=== PATIENT | female | born 1955 | race Caucasian/White ===

== ENCOUNTER 2021-10-21 10:13 | Observation (INO) ==
--- NOTE | 2021-10-16 12:03 | Anesthesiology Consultation ---
Date of Service October 16, 2021 Assessment & Plan (1) Encounter for pre-operative examination: Chart Review Chart Review: Acceptable Risk for Surgery (pending preop Covid testing results and DOS labs ) and Patient NOT seen in Pre Admission Testing - No updated preop testing done- will order CBC with diff, PRP, coags for DOS Per nursing assessment- patient anxious about SAB Last dose of Xarelto will be on the evening of 10/17/21 (was approved by heme per patient) Per nursing assessment on 10/16/21, patient denies any recent travel with exception to [place]. No known Covid positive exposures or Covid related sy mptoms. No known Covid infection in the past 90 days. Pt is fully vaccinated for Covid. Preop Covid testing scheduled 10/17/21= will await results. Patient seen by PCP 03/28/2021= patient seen for preop exam. Scheduled for right knee replacement 04/05/2021. No concerns at this time. Labs noted, stable. EKG normal. CXR clear of any acute pulmonary process.Patient is cleared from a medical standpoint. CT thoracic spine with minimal chronic T2 vertebral compression fracture; will not impact upcoming procedure. Patient is cleared for surgery. History Surgery Operation Date: 10/21/21 07:00 Proposed Procedures p Right Total Knee Arthroplasty - Yash Torres DO Height/Weight Height: 5 ft 1.75 in Weight: 88.451 kg Allergies Allergy/AdvReac Type Severity Reaction Status Date / Time mold Allergy Unknown ALLERGY Verified 10/16/21 09:42 CONGESTION sulfamethoxazole Allergy Unknown CONSTIPATIO Verified 10/16/21 09:42 [From Bactrim] N trimethoprim [From Bactrim] Allergy Unknown CONSTIPATIO Verified 10/16/21 09:42 N nitrofurantoin AdvReac Unknown GAVE COLD Verified 10/16/21 09:42 [From Macrobid] AND CHILLS Medications Home Medications Medication Instructions Recorded Confirmed Last Taken alprazolam 0.5 mg tablet (Xanax) 0.5 mg PO HS 01/08/21 10/16/21 Unknown celecoxib 200 mg capsule (Celebrex) 200 mg PO QAM 01/08/21 10/16/21 Unknown fluticasone propionate 50 1 spray INTRANASAL DAILY PRN 01/08/21 10/16/21 Unknown mcg/actuation nasal spray,suspension (Flonase Allergy Relief) losartan 50 mg tablet 50 mg PO QAM 01/08/21 10/16/21 Unknown pantoprazole 40 mg tablet,delayed 40 mg PO QAM 01/08/21 10/16/21 Unknown release (Protonix) rivaroxaban 20 mg tablet (Xarelto) 20 mg PO HS 01/08/21 10/16/21 Unknown rosuvastatin 5 mg tablet (Crestor) 5 mg PO Q2D 01/08/21 10/16/21 Unknown topiramate 100 mg tablet (Topamax) 100 mg PO BID tab 01/08/21 10/16/21 Unknown trazodone 100 mg tablet 100 mg PO HS 01/08/21 10/16/21 Unknown venlafaxine 150 mg 150 mg PO QAM 01/08/21 10/16/21 Unknown capsule,extended release 24 hr (Effexor XR) venlafaxine 37.5 mg tablet 37.5 mg PO QAM 01/08/21 10/16/21 Unknown cholecalciferol (vitamin D3) 125 125 mcg PO Q2D 03/04/21 10/16/21 Unknown mcg (5,000 unit) tablet (Vitamin D3) docusate sodium 100 mg capsule 100 mg PO HS 10/16/21 10/16/21 Unknown (Colace) polyethylene glycol 3350 17 gram 17 g PO UD PRN 10/16/21 10/16/21 Unknown oral powder packet (Miralax) Past Medical History Medical History Anxiety Compression fracture 03/2021 incidental finding on CXR- pt asymptomatic. No limitations. Constipation S/p colonoscopy, no findings History of anesthesia reaction Pt reports fear of getting spinal anesthesia... 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 10 YRS AGO NO STENTS History of cataract surgery R/L History of colonoscopy 2 weeks ago History of esophagogastroduodenoscopy (EGD) History of hysterectomy OVARIES REMAIN History of lithotripsy History of lumpectomy of both breasts BENIGN Thyroid nodule HX S/P PARTIAL THYROIDECTOMY Social History Smoking Status: Never smoker Do You Dip or Chew Tobacco: No Hx Alcohol Use: Yes (ONLY 1-2 DRINKS PER YEAR) Hx Substance Use: No substance use type: does not use Testing Electrocardiogram Date: 03/14/21 Findings: + NSR @ (76bpm ) Normal EKG per cardio Chest X-Ray Date: 03/14/21 Findings: + NAD Possible compression fracture deformity within lower thoracic spine, acuity is unknown. Further evaluation with CT of the thoracic spine is recommended. Report will be sent to ordering physician office. (Per 03/14/21 anesthesia consultation- per 03/28/[address] thoracic spine done that showed minimal chronic T2 vertebral compression fracture- felt it would not impact upcoming surgery (pt initially scheduled for surgery 04/05/21 (rescheduled to 10/21/21)) Stress Test Date: 05/02/20 Type: DSE Resting EF: 60% Resting LV Function: normal Dobutamine stress EKG is not indicative of ischemia. Dobutamine stress echocardiogram was negative for ischemia/infarction.
--- NOTE | 2021-10-17 09:08 | History & Physical Report ---
Date of Service October 17, 2021 Assessment & Plan (1) Osteoarthritis of right knee: We will proceed with a right total knee arthroplasty. Postoperatively she will be started on Xarelto for DVT prophylaxis and kept overnight in the hospital for postoperative medical management. She plans to use home health upon discharge. History of Present Illness Chief Complaint: Osteoarthritis of the right knee. Primary Care Provider: Dc Coates is a pleasant 66-year-old female who comes in with chronic worsening right knee pain. Is been going on for several years. She cannot going up and down stairs anymore. X-rays and clinical examination have been diagnostic for advanced osteoarthritis of the right knee. MRI confirms the arthritis. After failing conservative treatment, she has elected proceed with a right total knee arthroplasty. Allergies Allergy/AdvReac Type Severity Reaction Status Date / Time mold Allergy Unknown ALLERGY Verified 10/16/21 09:42 CONGESTION sulfamethoxazole Allergy Unknown CONSTIPATIO Verified 10/16/21 09:42 [From Bactrim] N trimethoprim [From Bactrim] Allergy Unknown CONSTIPATIO Verified 10/16/21 09:42 N nitrofurantoin AdvReac Unknown GAVE COLD Verified 10/16/21 09:42 [From Macrobid] AND CHILLS Home Medications Medication Instructions Recorded Confirmed Type alprazolam 0.5 mg tablet (Xanax) 0.5 mg PO HS 01/08/21 10/16/21 History celecoxib 200 mg capsule (Celebrex) 200 mg PO QAM 01/08/21 10/16/21 History fluticasone propionate 50 1 spray INTRANASAL DAILY PRN 01/08/21 10/16/21 History mcg/actuation nasal spray,suspension (Flonase Allergy Relief) losartan 50 mg tablet 50 mg PO QAM 01/08/21 10/16/21 History pantoprazole 40 mg tablet,delayed 40 mg PO QAM 01/08/21 10/16/21 History release (Protonix) rivaroxaban 20 mg tablet (Xarelto) 20 mg PO HS 01/08/21 10/16/21 History rosuvastatin 5 mg tablet (Crestor) 5 mg PO Q2D 01/08/21 10/16/21 History topiramate 100 mg tablet (Topamax) 100 mg PO BID tab 01/08/21 10/16/21 History trazodone 100 mg tablet 100 mg PO HS 01/08/21 10/16/21 History venlafaxine 150 mg 150 mg PO QAM 01/08/21 10/16/21 History capsule,extended release 24 hr (Effexor XR) venlafaxine 37.5 mg tablet 37.5 mg PO QAM 01/08/21 10/16/21 History cholecalciferol (vitamin D3) 125 125 mcg PO Q2D 03/04/21 10/16/21 History mcg (5,000 unit) tablet (Vitamin D3) docusate sodium 100 mg capsule 100 mg PO HS 10/16/21 10/16/21 History (Colace) polyethylene glycol 3350 17 gram 17 g PO UD PRN 10/16/21 10/16/21 History oral powder packet (Miralax) Past Med/Surg History Medical History Anxiety Compression fracture 03/2021 incidental finding on CXR- pt asymptomatic. No limitations. Constipation S/p colonoscopy, no findings History of anesthesia reaction Pt reports fear of getting spinal anesthesia... 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 Protein S deficiency Hx of phlebitis but no history of DVT/PE ON XARELTO SOB (shortness of breath) on exertion "OUT OF SHAPE"-DOES NOT EXERCISE Surgical History History of cardiac cath [facility] 10 YRS AGO NO STENTS History of cataract surgery R/L History of colonoscopy 2 weeks ago History of esophagogastroduodenoscopy (EGD) History of hysterectomy OVARIES REMAIN History of lithotripsy History of lumpectomy of both breasts BENIGN Thyroid nodule HX S/P PARTIAL THYROIDECTOMY Family History Father Family history of diabetes mellitus Family hx of colon cancer Mother Family history of diabetes mellitus Social History Smoking Status: Never smoker Second Hand Exposure: Yes (FATHER SMOKED); Hx Alcohol Use: Yes (ONLY 1-2 DRINKS PER YEAR) Hx Substance Use: No Preferred Language: Indonesian Communication Ability: Effective [employer] Dispatcher Required: No Beliefs That Will Affect Care: None Current Living Situation: Alone current occupational status: employed current occupation: [employer] Feels Safe at Home: Yes Assistive Devices: Denture - Upper Review of Systems All systems reviewed & are unremarkable except as noted in HPI & below. Physical Exam On physical examination of the right knee, she has a trace effusion. She is good motion 0 to 120 degrees. No instability. Tenderness palpation of the distal medial femoral condyle and over the medial joint line. Constitutional WD/WN, vitals as above Eyes PERRL, conjunctivae normal, anicteric sclerae ENMT external ear and nose normal, oropharynx normal Neck trachea midline, no thyromegaly Respiratory normal respiratory effort Cardiovascular RRR, no murmur, no edema Gastrointestinal (Abdomen) normal bowel sounds, soft, nontender, no hepatosplenomegaly Psychiatric A+Ox3, euthymic affect Results & Data Results & Data Laboratory Results . Diagnostic Findings X-rays of the right knee do show some signs of osteoarthritis with some joint space narrowing. MRI of the right knee shows more advanced arthritis with some joint space narrowing osteophyte formation of fluid within the bone. PG Care Time/CCT Total # of Minutes Spent Total Time Spent with Patient: Total time spent is greater than 50% in coordination of care (as documented) at patient's floor/unit and/or counseling patient: Coding Level of Care Code None Diagnoses Osteoarthritis of right knee M17.11
[~2021-10-21 10:13] MED LIST: ACETAMINOPHEN 500 MG TAB PO SCH; BUPIVACAINE 0.5 % 5 MG/1 ML PF 10ML VIAL ONE; FAMOTIDINE 20 MG TAB PO SCH; GABAPENTIN 300 MG CAP PO SCH; Ketorolac (*for OR use only*) 30 MG, dexAMETHasone 4 MG, KETAMINE HCL (**OR use only) 1... INFIL SCH; LR 500ML BOLUS, THEN 15ML/HR IV SCH; ROPIVACAINE 0.5% 5 MG/ML 30 ML VIAL ONE; TRANEXAMIC ACID 1,000 MG **IV Intra-op IV SCH; ceFAZolin 2000MG 2,000 MG/15 ML SYR IV SCH
[2021-10-21 11:01] LABS: Basophils # (auto) 0.07 K/uL (0-0.2); Basophils % (auto) 1.1 %; Eosinophils # (auto) 0.07 K/uL (0-0.5); Eosinophils % (auto) 1.1 %; Hematocrit (blood only) 44.8 % (37-47); Hemoglobin 14.7 g/dL (12.0-16.0); Immature Granulocytes # (auto) 0.01 K/uL (0.00-0.02); Immature Granulocytes % (auto) 0.2 %; Lymphocytes # (auto) 2.12 K/uL (1.2-3.4); Lymphocytes % (auto) 32.5 %; Mean Corpuscular Hemoglobin 28.7 pg (25-34); Mean Corpuscular Volume 87.5 fL (80-100); Mean Platelet Volume 10.3 fL (7.4-10.4); Monocytes # (auto) 0.42 K/uL (0.11-0.59); Monocytes % (auto) 6.4 %; Neutrophils # (auto) 3.83 K/uL (1.4-6.5); Neutrophils % (auto) 58.7 %; Platelet Count 269 K/uL (130-400); RDW Coefficient of Variation 13.5 % (11.5-14.5); RDW Standard Deviation 43.5 fL (36.4-46.3); Red Blood Count 5.12 M/uL (4.2-5.4); White Blood Count 6.52 K/uL (4.8-10.8)
[2021-10-21 11:11] LABS: Mean Corpuscular Hgb Conc 32.8 g/dL (32-36)
[2021-10-21 11:16] LABS: BUN Creatinine Ratio 13.2 (10-20); Calcium 9.1 mg/dl (8.5-10.1); Est GFR (African American) 76.2 ml/min; Est GFR (Non-African American) 65.7 ml/min; Potassium 3.9 mmol/L (3.5-5.1)
[2021-10-21] MEDS ORDERED: fentaNYL citrate 100 MCG/2 ML VIAL ONE (11:31)
[2021-10-21] MEDS ORDERED: MIDAZOLAM HCL 1 MG/ML 2ML VIAL ONE ×2 (11:31→12:28)
[2021-10-21] MEDS ORDERED: PROPOFOL IV EMULSION 10 MG/ML 20 ML VIAL IV ONE ×2 (11:32)
[2021-10-21 12:18] LABS: Partial Thromboplastin Ratio 0.8; Partial Thromboplastin Time 23.2 Seconds (21.0-31.0); Prothrombin Time 10.2 Seconds (9.0-12.0)
[2021-10-21] MEDS ORDERED: ORTHO JOINT ANESTHETIC ONE (12:27)
[2021-10-21] MEDS ORDERED: HYDROmorphone INJ 1 MG/ML SYRINGE IV PRN (12:29)
[2021-10-21] MEDS ORDERED: ePHEDrine sulfate 50 MG/ML AMP IV PRN (12:29)
[2021-10-21] MEDS ORDERED: KETOROLAC 30 MG/ML VIAL IV PRN (12:29)
[2021-10-21] MEDS ORDERED: ONDANSETRON INJ 2 MG/ML 2 ML VIAL IV PRN (12:29)
[2021-10-21] MEDS ORDERED: ATROPINE SULFATE 0.1 MG/ML 10ML SYR IV PRN (12:29)
--- NOTE | 2021-10-21 12:50 | History & Physical Bridge Note ---
Date of Service October 21, 2021 History & Physical Bridge Note I have examined the patient, reviewed the History & Physical and in the interval since the performance of the History & Physical I have noted the following changes of clinical significance: no changes noted
[2021-10-21] MEDS ORDERED: TRANEXAMIC ACID 100 MG/ML 10 ML VIAL IV ONE ×2 (13:15)
[2021-10-21] MEDS ORDERED: TRANEXAMIC ACID 1,000 MG **IV Intra-op IV ONE (13:30)
[2021-10-21] MEDS ORDERED: ONDANSETRON INJ 2 MG/ML 2 ML VIAL ONE (14:10)
--- NOTE | 2021-10-21 14:23 | Operative Report ---
PG Post Operative Report Pre & Post Diagnosis Operation Date: 10/21/21 12:25 Pre-Op Diagnosis: Osteoarthritis of right knee Post-Op Diagnosis: Osteoarthritis of right knee I identified the patient and participated in the time-out.: Yes Procedure Operation Date: 10/21/21 12:25 Actual Procedures p Right Total Knee Arthroplasty(Right) - Yash Torres DO Surgeon Yash Torres, Manager Work [employer] PAC Estimated Blood Loss 10 Findings Consistent with Post-Op Diagnosis Specimens Right femoral and tibial bone Complications none Disposition Disposition: Recovery Room Indications Aminata is a pleasant six 6-year-old female has been dealing with chronic in creasing right knee pain. X-rays and clinical examination have been diagnostic for advanced arthritis of the right knee. After failing conservative treatment, she elected to proceed with a right total knee arthroplasty. Description of Procedure Implants used: I used a [employer] Person[employer] total knee arthroplasty system with a size 6 standard femur, D tibia, 28 oval patella, and a size 13 medial congruent polyethylene bearing. All components were cemented in place with Biomet cement. Aminata arrived [facility] for the above procedure. She was seen in the preoperative holding area and the operative extremity was identified and signed. She was given a preoperative antibiotic, TXA, a spinal anesthetic and an adductor nerve block. She was taken back to the operating room and laid on the table in supine position. She was given basic sedation. The operative knee was then prepped and draped in sterile fashion. A timeout was done, and the patient and the operative extremity was properly identified. A midline incision was made directly over the patella. Dissection was taken down to the extensor mechanism. A subvastus arthrotomy was used. The medial retinaculum was released and the fat pad was mostly excised. The knee was flexed and the ACL, PCL, and meniscus were removed. A drill was sent down the center of the femoral canal followed by an intramedullary selwyn. Off that selwyn a distal femoral cutting block was placed. 9 mm was resected off the distal femur at 5 of valgus. A posterior referencing AP sizing guide was then placed on the distal femur. The femur measured to be a size 6. 2 drill holes were placed in 3 of external rotation. A 4-in-1 cutting block was then impacted into place. Anterior, posterior, and chamfer cuts were then made. The proximal tibia was then exposed. An external tibial alignment guide was placed. A tibial cut guide was then anchored in place and the proxim al tibia was then resected. The posterior aspect of the knee was then opened up and any additional meniscus fragments and osteophytes were removed. The tibia measured to be a size D. The tibial plate was then placed in the appropriate rotation and the tibia was drilled and punched. Trial components were then placed. I used a size 13 medial congruent polyethylene insert. The knee was brought through a full range of motion and felt to be stable. The peg holes for the femoral component were then drilled. The patella was then everted and 9 mm was resected off the posterior aspect of the patella. The patella measured to be a size 28 oval. 3 peg holes were then drilled. A trial patella was placed. The knee was once again brought through a full range of motion and felt to be stable. Trial components were then removed. The surrounding soft tissues were injected with 100 cc of an orthopedic pain control cocktail. All components were then cemented into place with Biomet cement. The final polyethylene insert was then snapped into place. Once cement was dry the tourniquet was deflated. Hemostasis was obtained. A dilute betadyne lavage was then done for 3 minutes. The joint was then irrigated with normal saline solution. The subvastus arthrotomy was then closed with #1 Vicryl suture. The skin was closed with 2-0 Vicryl, 3-0V lock suture, and pastor. A soft compressive dressing was placed. She was then transferred to a hospital bed and taken to the postanesthesia care unit in stable condition. She tolerated the procedure well. Ector Dolan PA-C, was present for the entire procedure. He was critical for patient positioning, prepping, draping, retraction exposure, wound closure and application of sterile dressing. I attest to the content of the Intraoperative Record and any orders documented therein. Any exceptions are noted below.
--- NOTE | 2021-10-21 14:48 | XRay Report ---
RIGHT KNEE 2 VIEWS History: Right total knee arthroplasty. Degenerative arthritis. Postop. FINDINGS: The patient is status post a right total knee arthroplasty. The hardware is intact. No frac ture or dislocation. Skin pastor are in place. IMPRESSION: Right total knee arthroplasty. No evidence for hardware complication. ACT 112: Negative or not required by law. Electronically signed by: Deacon Taylor M.D. 10/21/2021 2:46 PM
[2021-10-21] MEDS ORDERED: MAGNESIUM HYDROXIDE SUSP 30 ML UDC PO PRN (15:17)
[2021-10-21] MEDS ORDERED: METOCLOPRAMIDE HCL INJ 5 MG/ML 2 ML VIAL IV PRN (15:17)
[2021-10-21] MEDS ORDERED: FLUTICASONE PROPIONATE NA SPR 16 GM BTL NAE PRN (15:17)
[2021-10-21] MEDS ORDERED: bisacodyL 10 MG SUPP PR PRN (15:17)
[2021-10-21] MEDS ORDERED: NALOXONE HCL 0.4 MG/1 ML VIAL/CARP IV PRN (15:17)
[2021-10-21] MEDS: SODIUM CHLORIDE 0.9% 1000ML 1,000 ML IV SCH (15:25)
[2021-10-21] MEDS: KETOROLAC TROMETHAMINE 15 MG/ML VIAL IV SCH ×2 (16:08→20:24)
--- NOTE | 2021-10-21 16:32 | Anesthesiology Progress Note ---
Date of Service October 21, 2021 Anesthesia Post Procedure Vital Signs Vital Signs: Temp Pulse Pulse Pulse Resp BP BP 10/21/21 16:16 36.4 C L 67 16 134/79 10/21/21 15:41 36.4 C L 67 18 130/79 10/21/21 15:10 36.4 C L 67 18 126/74 10/21/21 14:55 68 16 129/73 10/21/21 14:45 69 16 120/72 10/21/21 14:35 69 16 116/72 10/21/21 14:27 36.0 C L 70 16 102/69 10/21/21 10:52 36.6 C 77 20 180/91 H Pulse Ox 10/21/21 16:16 99 10/21/21 15:41 97 10/21/21 15:10 95 10/21/21 14:55 95 10/21/21 14:45 97 10/21/21 14:35 98 10/21/21 14:27 98 10/21/21 10:52 100 Transfer of Care Handoff Completed per policy Notes Mental Status: alert / awake / arousable Patient Amnestic to Procedure: Yes Nausea / Vomiting: adequately controlled Pain: adequately controlled Airway Patency, RR, SpO2: stable & adequate BP & HR: stable & adequate Hydration State: stable & adequate Neuraxial Anesthesia: was administered and sensory block is resolving Anesthetic Complications: no major complications apparent
[2021-10-21] MEDS: RIVAROXABAN 20 MG TAB PO SCH (17:19)
[2021-10-21] MEDS: TOPIRAMATE 100 MG TAB PO SCH (20:23)
[2021-10-21] MEDS: SENNA 8.6 MG TAB PO SCH (20:23)
[2021-10-21] MEDS: traZODone HCL 100 MG TAB PO SCH (20:23)
[2021-10-21] MEDS: DOCUSATE SODIUM 100 MG CAP PO SCH (20:23)
[2021-10-21] MEDS: ALPRAZolam 0.5 MG TABLET PO SCH (20:23)
[2021-10-21] MEDS: ceFAZolin 2000MG 2,000 MG/15 ML SYR IV SCH (20:24)
[2021-10-21] MEDS ORDERED: ROSUVASTATIN CALCIUM 5 MG TAB PO SCH (21:00)
[2021-10-21] MEDS: oxyCODONE HCL IR 5 MG TAB (IMMEDIATE RELEASE) PO PRN (21:30)
[2021-10-21] MEDS: HYDROmorphone INJ 0.5 MG/0.5 ML SYR IV PRN (22:41)
[2021-10-22] MEDS: SODIUM CHLORIDE 0.9% 1000ML 1,000 ML IV SCH (01:08)
[2021-10-22] MEDS: ceFAZolin 2000MG 2,000 MG/15 ML SYR IV SCH (03:34)
[2021-10-22] MEDS: KETOROLAC TROMETHAMINE 15 MG/ML VIAL IV SCH ×2 (03:35→09:36)
--- NOTE | 2021-10-22 06:02 | Orthopedic Progress Note ---
Date of Service October 22, 2021 Assessment & Plan (1) Status post right knee replacement: Overall she is doing okay. She is having some soreness in the knee which is to be expected. She will be seen by physical therapy today for ambulation and range of motion exercises. She is on Xarelto for DVT prophylaxis. She can be discharged home today if she participates well with physical therapy. Otherwise, if she feels unstable, we can keep her till tomorrow. The nursing staff can change her dressing after physical therapy today. Kari Coates was seen and examined at bedside this morning. Overall she is doing fairly well. She is having some soreness in the knee. She has not been ambulating much yet with the nurses. Review of Systems All systems reviewed & are unremarkable except as noted in HPI & below. Physical Exam On physical examination of the right knee, the dressing is clean and dry. Her leg is out full extension. She has active dorsiflexion plantarflexion of her right ankle.. Results & Data Results & Data Laboratory Results . Diagnostic Findings Postoperative x-rays of the right knee show the prosthesis to be in anatomic alignment without any evidence of fracture, desiccation, or loosening. PG Care Time/CCT Total # of Minutes Spent Total Time Spent with Patient: Total time spent is greater than 50% in coordination of care (as documented) at patient's floor/unit and/or counseling patient: Coding Level of Care Code 55186 Post Operative Follow-Up Diagnoses Status post right knee replacement Z96.651
[2021-10-22] MEDS ORDERED: dexAMETHasone 4 MG TAB PO SCH (08:00)
[2021-10-22] MEDS: TOPIRAMATE 100 MG TAB PO SCH ×2 (08:23→21:45)
[2021-10-22] MEDS: MULTIVITAMIN TAB PO SCH (08:23)
[2021-10-22] MEDS: VENLAFAXINE HCL 37.5 MG TAB PO SCH (08:23)
[2021-10-22] MEDS: VENLAFAXINE HCL XR 150 MG CAPXR PO SCH (08:23)
[2021-10-22] MEDS: PANTOprazole 40 MG TAB PO SCH (08:23)
[2021-10-22] MEDS: LOSARTAN POTASSIUM 50 MG TAB PO SCH (08:23)
[2021-10-22] MEDS: DOCUSATE SODIUM 100 MG CAP PO SCH ×2 (08:24→21:45)
[2021-10-22] MEDS: oxyCODONE HCL IR 5 MG TAB (IMMEDIATE RELEASE) PO PRN ×4 (08:25→19:33)
[2021-10-22] MEDS ORDERED: CHOLECALCIFEROL 5,000 UNITS 125 MCG TAB PO SCH (09:00)
[2021-10-22] MEDS ORDERED: RIVAROXABAN 20 MG TAB PO SCH (09:00)
[2021-10-22] MEDS: RIVAROXABAN 20 MG TAB PO SCH (16:09)
[2021-10-22] MEDS: ALPRAZolam 0.5 MG TABLET PO SCH (21:45)
[2021-10-22] MEDS: SENNA 8.6 MG TAB PO SCH (21:46)
[2021-10-22] MEDS: traZODone HCL 100 MG TAB PO SCH (21:46)
[2021-10-22] MEDS: HYDROmorphone INJ 0.5 MG/0.5 ML SYR IV PRN (21:46)
[2021-10-23] MEDS: oxyCODONE HCL IR 5 MG TAB (IMMEDIATE RELEASE) PO PRN ×3 (00:37→12:29)
[2021-10-23] MEDS: HYDROmorphone INJ 0.5 MG/0.5 ML SYR IV PRN (03:15)
--- NOTE | 2021-10-23 06:28 | Orthopedic Progress Note ---
Date of Service October 23, 2021 Assessment & Plan (1) Status post right knee replacement: She is having a lot of pain in her right knee but that can be controlled on oral pain medications. She will be seen by physical therapy again today for ambulation and range of motion exercises. She is on aspirin for DVT prophylaxis. She can be discharged home later today. The dressing can be changed after physical therapy. She will follow-up with orthopedics in 2 weeks. Kari Coates was seen and examined at bedside this morning. Unfortunate she is having a lot of pain in her right knee. She was able to participate well yesterday with physical therapy. She was able to walk in the hallways. Aside from the pain in her knee, she is not having any other issues. Review of Systems All systems reviewed & are unremarkable except as noted in HPI & below. Physical Exam On physical examination the right knee, the dressing is clean and dry. Her leg is out full extension. She has active dorsiflexion and plantarflexion of her right ankle.. Results & Data Results & Data Laboratory Results . Diagnostic Findings . PG Care Time/CCT Total # of Minutes Spent Total Time Spent with Patient: Total time spent is greater than 50% in coordination of care (as documented) at patient's floor/unit and/or counseling patient: Coding Level of Care Code 56773 Post Operative Follow-Up Diagnoses Status post right knee replacement Z96.651
--- NOTE | 2021-10-23 06:30 | Discharge Summary ---
Date of Service October 23, 2021 Admission HPI (Per Admitting) Aminata is a pleasant 66-year-old female who comes in with chronic worsening right knee pain. Is been going on for several years. She cannot going up and down stairs anymore. X-rays and clinical examination have been diagnostic for advanced osteoarthritis of the right knee. MRI confirms the arthritis. After failing conservative treatment, she has elected proceed with a right total knee arthroplasty. Admission Exam (Per Admitting) On physical examination of the right knee, she has a trace effusion. She is good motion 0 to 120 degrees. No instability. Tenderness palpation of the distal medial femoral condyle and over the medial joint line. Principal Diagnosis Same as "Discharge Diagnosis" noted below under Discharge Instructions. Discharge Exam On physical examination the right knee, the dressing is clean and dry. Her leg is out full extension. She has active dorsiflexion and plantarflexion of her right ankle.. Discharge Data Procedures Performed Operation Date: 10/21/21 12:25 Actual Procedures p Right Total Knee Arthroplasty(Right) - Yash Torres DO Ordered Studies 10/21/21 05:00 US - OR guided needle placemen Routine Hospital Course (1) Status post right knee replacement: On October 21, 2021 Aminata arrived at [facility] and underwent a right knee replacement without complication. She had a spinal anesthetic. Postoperatively she was started on aspirin for DVT prophylaxis and transferred to the general orthopedic floors. Her hospital course was uneventful. On postop day #1 her vital signs were stable. She was having a lot of soreness in her knee. She was able to participate well with physical therapy doing ambulation and range of motion exercises. On postop day #2 she continued to do fairly well. She was still having pain in her knee but she was able to ambulate well with physical therapy. She was given some oral pain medications and then discharged home. She will follow-up with orthopedics in 2 weeks. PG Care Time/CCT Total # of Minutes Spent Total Time Spent with Patient: Total time spent is greater than 50% in coordination of care (as documented) at patient's floor/unit and/or counseling patient: Discharge Plan Discharge Items Patient Disposition: Home - Home Health Services Reason For Visit: DJD Right Knee Discharge Diagnosis: Right knee replacement Activity: Per Instructions section Non-emergency contact: Surgeon Call non-emergency contact if: your wound has increased redness and your wound has increased drainage Follow-up/Referrals: Dc Elizalde [Primary Care Provider] - Diet: Regular Addtl Attending Provider Instructions: Activity and Therapy Recommendations: * If you are using [facility] then therapy will be provided at your home until they feel you have accomplished all of your goals. * If you are using [facility] then Physical Therapy will be provided until they feel you are ready to start Outpatient Physical Therapy. * If you are not using home therapy then Outpatient Physical Therapy should start about 3-5 days from your day of surgery. Therapy will last about 6-10 weeks * It is important not to put a pillow under your knee when you are relaxing or sleeping. It is just as important to make sure you are getting your knee perfectly straight as it is to regain your knee bend. * You were shown a series of exercises in the hospital. Do these exercises three times each day including the exercises you were shown in physical therapy. * Get up and walk several times each day. For the first four weeks, try not to stand or walk for more than one hour at a time. If you do stand or walk for more than one hour, you will not hurt anything, but your leg will likely swell. * As you feel comfortable, you may change from the walker or crutches to a cane and then to independent walking. Medications: * Narcotic You will likely be sent home from the hospital with a prescription for the narcotic pain medication that worked best throughout your stay. * Aspirin Most patients will be required to take Aspirin 81mg twice a day for 6 weeks after surgery. This is obtained [id number] and a prescription is not necessary. * Other medications may be prescribed for specific circumstances. If you have any questions, please call the office at . * Resume previous home medications unless otherwise instructed TEDs/Elastic Stockings: The white elastic stockings help limit swelling and prevent blood clots from forming in your legs.~ The more you wear them, the more they work. Wear them for six weeks. Dressing Care: The dressing can be changed after physical therapy on postop day #1. Daily dry dressing changes for a few days, especially if the incision is still draining some. If the incision is not draining then you may leave the pastor open to air. If there is a little bit of drainage or if the pastor are getting stuck on your clothing then cover the incision with a dry dressing. The pastor will be removed at your 2 week follow-up appointment. Showering: You may shower 5 days from the day of surgery as long as the incision is no longer draining. You may shower with the pastor exposed. Let soapy water run over the pastor and pat them dry. Do not scrub or soak the incision. Things To Watch For: * Drainage from the incision site that occurs more than one week after your surgery. * Increased redness at the incision site. * Fever above 102 degrees Fahrenheit. * Unusual chest pain or shortness of breath. * Call [facility] at with any of the above prob lems Follow-Up Visit: Follow-up with Dr. Torres's PA (Yash Carpenter) 2-3 weeks after your day of surgery. He will remove your pastor and answer any questions. If you have any additional questions or concerns, Dr Torres is usually in the office at the same time and will be available An appointment was probably scheduled when you signed-up for surgery in the office. If you have any questions call Office Instructions: More detailed instructions as well as Frequently Asked Questions were provided in a folder by our office when you signed-up for surgery. Please review these instructions when you get home. If you have any further questions or concerns, please feel free to call the office at [phone] Pending Studies at Discharge: No Stand-Alone Forms: My [facility] Medications and DC Order Prescriptions: New oxycodone-acetaminophen 5-325 mg tablet 1 tab PO Q6H PRN (Reason: pain) Qty: 30 RF: 0 Continued rosuvastatin [Crestor] 5 mg tablet 5 mg PO Q2D RF: 0 alprazolam [Xanax] 0.5 mg tablet 0.5 mg PO HS RF: 0 trazodone 100 mg tablet 100 mg PO HS RF: 0 celecoxib [Celebrex] 200 mg capsule 200 mg PO QAM RF: 0 Xarelto 20 mg tablet 20 mg PO HS RF: 0 venlafaxine 37.5 mg tablet 37.5 mg PO QAM RF: 0 venlafaxine [Effexor XR] 150 mg capsule,extended release 24hr 150 mg PO QAM RF: 0 pantoprazole [Protonix] 40 mg tablet,delayed release (DR/EC) 40 mg PO QAM RF: 0 topiramate [Topamax] 100 mg tablet 100 mg PO BID RF: 0 losartan 50 mg tablet 50 mg PO QAM RF: 0 fluticasone propionate [Flonase Allergy Relief] 50 mcg/actuation spray,suspension 1 spray intranasal DAILY PRN (Reason: allergy symptoms) RF: 0 cholecalciferol (vitamin D3) [Vitamin D3] 125 mcg (5,000 unit) Tablet 125 mcg PO Q2D RF: 0 polyethylene glycol 3350 [Miralax] 17 gram Powder In Packet 17 g PO UD PRN (Reason: Constipation) RF: 0 docusate sodium [Colace] 100 mg Capsule 100 mg PO HS RF: 0 Discharge Orders: Discharge Order (Routine); Ordered 10/23/21 Ordered By: Yash Torres Admission Data Admit Date/Time: 10/21/21 14:29 Attending Provider: Yash Torres Admit Provider: Yash Torres Primary Care Provider: Dc Elizalde Other Providers: [facility],Home Health
[2021-10-23] MEDS: MULTIVITAMIN TAB PO SCH (08:48)
[2021-10-23] MEDS: TOPIRAMATE 100 MG TAB PO SCH (08:48)
[2021-10-23] MEDS: LOSARTAN POTASSIUM 50 MG TAB PO SCH (08:48)
[2021-10-23] MEDS: VENLAFAXINE HCL 37.5 MG TAB PO SCH (08:48)
[2021-10-23] MEDS: PANTOprazole 40 MG TAB PO SCH (08:48)
[2021-10-23] MEDS: DOCUSATE SODIUM 100 MG CAP PO SCH (08:48)
[2021-10-23] MEDS: VENLAFAXINE HCL XR 150 MG CAPXR PO SCH (08:48)
== END 2021-10-23 13:19 | disposition home health service (06) ==
LOC: 3E 10:13 → ASU 10:13